=== PATIENT | female | born 1970 | race Asian ===

== ENCOUNTER 2019-02-08 23:29 | Emergency (ER) | payer SELFPAY ==
[~2019-02-08] VITALS: Ht 157.5 cm; Wt 63.6 kg
[2019-02-09] MEDS ORDERED: IBUPROFEN 600 MG TABLET PO ONE (01:30)
[2019-02-09] MEDS ORDERED: CefTRIAXone 1 GM/DEXTROSE 50 ML IV ONE (03:00)
[2019-02-09 04:05] VITALS: BP 132/75
== END 2019-02-09 04:14 | disposition short-term general hospital (02) ==
LOC: EMS 23:30
DX: S02.40FA Zygomatic fracture, left side, initial encounter for closed fracture (principal); Y04.0XXA Assault by unarmed brawl or fight, initial encounter; Y93.89 Activity, other specified; Y92.488 Other paved roadways as the place of occurrence of the external cause; Y99.8 Other external cause status
CPT/HCPCS: 70450; 70486; 96365; 99285; J0696

== ENCOUNTER 2020-06-02 19:36 | Emergency (ER) | payer SELFPAY ==
[~2020-06-02] VITALS: Ht 157.5 cm; Wt 65.9 kg
[2020-06-02] MEDS ORDERED: IBUPROFEN 600 MG TABLET PO ONE (22:15)
[2020-06-02 22:39] VITALS: BP 140/90
== END 2020-06-02 22:56 | disposition home or self-care (01) ==
LOC: EMS 19:38
DX: S40.011A Contusion of right shoulder, initial encounter (principal); V43.52XA Car driver injured in collision with other type car in traffic accident, initial encounter; Y93.89 Activity, other specified; Y92.488 Other paved roadways as the place of occurrence of the external cause; Y99.8 Other external cause status

== ENCOUNTER 2024-11-17 10:57 | Emergency (ER) | payer OTHER ==
[~2024-11-17] VITALS: Ht 162.6 cm; Wt 63.6 kg
[2024-11-17 11:16] VITALS: BP 137/89; PULSE 76; RESP 18; TEMP 98.2; O2SAT 99
== END 2024-11-17 12:16 | disposition home or self-care (01) ==
LOC: EMS 11:03
DX: K92.1 Melena (principal); Z72.89 Other problems related to lifestyle
CPT/HCPCS: 99281; Z7502